=== PATIENT | female | born 1970 | race Caucasian/White ===

== ENCOUNTER 2019-03-28 12:45 | Inpatient (IN) | payer OTHER ==
[~2019-03-28] VITALS: Ht 162.6 cm; Wt 72.6 kg
== END 2019-04-09 15:33 | DRG 742 ==
LOC: O/R 04-03 05:55 → OB/GYN 04-03 19:01
PROVIDERS: Surgery; ADMIT Obstetrics & Gynecology
PROC: 0DQP0ZZ Repair Rectum, Open Approach (ICD-10-PCS; 2019-04-03)
PROC: 0UT90ZL Resection of Uterus, Supracervical, Open Approach (ICD-10-PCS; principal; 2019-04-03 12:00)
PROC: 0DNW0ZZ Release Peritoneum, Open Approach (ICD-10-PCS; 2019-04-03 12:00)
DX: D25.1 Intramural leiomyoma of uterus (principal); K91.71 Accidental puncture and laceration of a digestive system organ or structure during a digestive system procedure; K91.89 Other postprocedural complications and disorders of digestive system; K56.7 Ileus, unspecified; D25.2 Subserosal leiomyoma of uterus; K66.0 Peritoneal adhesions (postprocedural) (postinfection)